=== PATIENT | female | born 1950 | race Caucasian/White ===

== ENCOUNTER → 2017-03-18 | Outpatient (CLI) | payer BC ==
[~2017-03-18] MED LIST: CLON0.1T PO; CLONIDINE PO; DOXE50CA PO; DOXEPIN PO; ESCI20TA PO; ESCITALOPRAM PO; FLUT1DIS3 INH; MELO-184 PO; MELOXICAM PO; MONT10TA9 PO; MONTELUKAST PO; PANTOPRAZOLE PO; SIMV20TA3 PO; SIMVASTATIN PO; TIZANIDINE PO; TRAMADOL PO; VIT1TABL32 PO; VITAMIN D PO
== END | disposition home or self-care (01) ==
LOC: STAR 12:27
PROVIDERS: ATTEND Neurological Surgery
DX: Z01.818 Encounter for other preprocedural examination (principal); M54.2 Cervicalgia; R79.1 Abnormal coagulation profile
CPT/HCPCS: 36415; 85610; 85730

== ENCOUNTER 2017-10-21 05:33 | Day surgery (SDC) | payer MEDICARE ==
[~2017-10-21] VITALS: Ht 160 cm; Wt 114.5 kg
[~2017-10-21 05:33] MED LIST changes: +ALBU8.5H8 INH; +CALC500T93 PO; +CETI10TA24 PO; +CHOL2000 PO; -MELO-184 PO; +MELO15TA24 PO; +OXYC-302 PO; +PANT40TA5 PO; +TIZA4CAP PO; +TRAM50TA2 PO
[2017-10-21 06:24] VITALS: BP 145/84
[2017-10-21] MEDS ORDERED: LACTATED RINGERS 1,000 ML IV SCH (06:37)
[2017-10-21] MEDS ORDERED: LIDOCAINE 1%, 2ML ONE (06:39)
[2017-10-21] MEDS ORDERED: LIDOCAINE 1%, 2ML SQ PRN (07:00)
[2017-10-21] MEDS ORDERED: ALBUTEROL SULFATE 2.5 MG/3 ML NPPB PRN (07:30)
[2017-10-21] MEDS ORDERED: PROPOFOL 10 MG/ML, 20ML ONE ×2 (07:39→07:47)
== END 2017-10-21 09:25 ==
LOC: OUT 05:33
PROVIDERS: ATTEND Internal Medicine Gastroenterology
DX: Z09 Encounter for follow-up examination after completed treatment for conditions other than malignant neoplasm (principal); D12.0 Benign neoplasm of cecum; D12.8 Benign neoplasm of rectum; K57.30 Diverticulosis of large intestine without perforation or abscess without bleeding; K44.9 Diaphragmatic hernia without obstruction or gangrene; K64.8 Other hemorrhoids; K22.2 Esophageal obstruction; R13.14 Dysphagia, pharyngoesophageal phase; Z83.71 Family history of colonic polyps
CPT/HCPCS: 43248; 45385; 88305; 93005; J2704; J3490; J7120